=== PATIENT | female | born 1955 | race Native Hawaiian/Other Pacific Islander ===

== ENCOUNTER 2018-09-21 23:31 | Emergency (ER) | payer SELFPAY ==
--- NOTE | 2018-09-22 00:45 | C.PDOC ---
History Of Present Illness 63 year old female with several episodes of nose bleeding since yesterday was concerned checked her blood pressure and saw it was 160 systolic. Denies chest pain, SOB, dizziness, syncope, or abdominal pain. Patient has no Hx of HTN and does not take any medications except multivitamin. Time Seen by Provider: 09/22/18 00:15 Chief Complaint (Nursing): High Blood Pressure History Per: Patient History/Exam Limitations: no limitations Onset/Duration Of Symptoms: Days Current Symptoms Are (Timing): Still Present Quality Of Symptoms: Asymptomatic Recent travel outside of the [place]: No Past Medical History Reviewed: Historical Data, Nursing Documentation, Vital Signs Vital Signs: Last Vital Signs Temp 98.1 F 09/21/18 23:44 Pulse 67 09/22/18 00:13 Resp 16 09/21/18 23:44 BP 158/79 H 09/22/18 00:13 Pulse Ox 100 09/21/18 23:44 - Medical History PMH: Hypercholesterolemia Family History: States: No Known Family Hx - Social History Hx Alcohol Use: No Hx Substance Use: No - Immunization History Hx Influenza Vaccination: No Hx Pneumococcal Vaccination: No Review Of Systems Constitutional: Negative for: Fever, Chills ENT: Positive for: Other (Nose bleeds) Cardiovascular: Negative for: Chest Pain, Palpitations Respiratory: Negative for: Cough, Shortness of Breath Gastrointestinal: Negative for: Nausea, Vomiting, Abdominal Pain Genitourinary: Negative for: Dysuria, Hematuria Musculoskeletal: Negative for: Back Pain Skin: Negative for: Rash Neurological: Negative for: Weakness, Numbness, Dizziness Physical Exam - Physical Exam Appears: Non-toxic, No Acute Distress Skin: Normal Color, Warm Head: Atraumatic, Normacephalic Eye(s): bilateral: Normal Inspection Nose: Normal, Other (No active bleeding) Oral Mucosa: Moist Neck: Normal, Supple Chest: Symmetrical, No Tenderness Cardiovascular: Rhythm Regular Respiratory: Normal Breath Sounds, No Rales, No Rhonchi, No Wheezing Gastrointestinal/Abdominal: Soft, No Tenderness Neurological/Psych: Oriented x3, Normal Speech ED Course And Treatment - Laboratory Results Result Diagrams: 09/22/18 00:45 09/22/18 00:45 ECG: Interpreted By Me, Viewed By Me ECG Rhythm: Sinus Rhythm Interpretation Of ECG: Normal axis, normal interval, no ST elevations, no T wave changes Rate From EC O2 Sat by Pulse Oximetry: 100 (Room air) Pulse Ox Interpretation: Normal - Radiology CXR: Interpreted by Me CXR Interpretation: Yes: No Acute Disease (hypoinflation) Medical Decision Making Medical Decision Making: Plan: * EKG * Blood work * CXR Patient with no complaints throughout ED course. No epistaxis noted. EKG and CXR unremarkable. Labs showed hyperglycemia, patient reports no history of diabetes. 1L NS bolus given with improvement of glucose to 381. No evidence of DKA. On re- eval patient in no distress. Results discussed. Stressed to the patient the importance of following up with her PMD for her elevated blood pressure and glucose. Patient verbalized understanding. BP 145/82 at discharge. Disposition - Disposition Disposition: HOME/ ROUTINE Disposition Time: 02:35 Condition: STABLE Additional Instructions: OKSANA MURILLO, thank you for letting us take care of you today. Your provider was Judith Aj MD and you were treated for TROUBL BREATHING, NOSE BLEED. The emergency medical care you received today was directed at your acute symptoms. If you were prescribed any medication, please fill it and take as directed. It may take several days for your symptoms to resolve. Return to the Emergency Department if your symptoms worsen, do not improve, or if you have any other problems. Please contact your doctor or call one of the physicians/clinics you have been referred to that are listed on the Patient Visit Information form that is included in your discharge packet. Bring any paperwork you were given at discharge with you along with any medications you are taking to your follow up visit. Our treatment cannot replace ongoing medical care by a primary care provider outside of the emergency department. Thank you for allowing the [facility] team to be part of your care today. If you had an X-Ray or CT scan: A Radiologist will review the ED reading if any change in treatment is needed we will contact you. If you had a blood, urine, or wound culture: It will take several days for the results, if any change in treatment is needed we will contact you. If you had an STI test: It will take 48 hours for the results. Please call after 1 week if you have not heard back. Instructions: High Blood Pressure (DC), Hyperglycemia, Adult (DC), Nosebleeds (DC) Forms: e(ye)BRAIN (Indonesian) - Clinical Impression Clinical Impression: High blood pressure, Hyperglycemia, Epistaxis - Scribe Statement The provider has reviewed the documentation as recorded by the Scribe Gian Sandhu All medical record entries made by the Vernellibe were at my direction and personally dictated by me. I have reviewed the chart and agree that the record accurately reflects my personal performance of the history, physical exam, medical decision making, and the department course for this patient. I have also personally directed, reviewed, and agree with the discharge instructions and disposition.
[2018-09-22 00:53] LABS: BASO % 0.7 % (0.0-2.0); EOS # 0.1 K/uL (0.0-0.7); EOS % 2.1 % (0.0-4.0); HEMOGLOBIN 13.2 g/dL (11.0-16.0); LYMPH # 2.4 K/uL (1.0-4.3); LYMPH % 37.9 % (20.0-40.0); MEAN CORPUSCULAR HEMOGLOBIN 30.2 pg (27.0-31.0); MEAN CORPUSCULAR HGB CONC 33.9 g/dL (33.0-37.0); MEAN PLATELET VOLUME 7.5 fL (7.2-11.7); MONO # 0.4 K/uL (0.0-0.8); MONO % 6.9 % (0.0-10.0); NEUT # 3.4 K/uL (1.8-7.0); NEUT % 52.4 % (50.0-75.0); NRBC % 0.1 % (0.0-2.0); RBC 4.38 Mil/uL (3.80-5.20); RED CELL DISTRIBUTION WIDTH 13.1 % (11.5-14.5); WHITE BLOOD COUNT 6.4 K/uL (4.8-10.8)
[2018-09-22 01:02] LABS: PROTHROMBIN TIME 10.5 SECONDS (9.7-12.2)
[2018-09-22 01:23] VITALS: RESP 18
[2018-09-22 01:32] LABS: ALB/GLOB RATIO 1.2 (1.0-2.1); ALBUMIN 4.1 g/dL (3.5-5.0); ALT/SGPT 16 U/L (9-52); AST/SGOT 19 U/L (14-36); BLOOD UREA NITROGEN 24 mg/dL (7-17); CALCIUM 9.8 mg/dl (8.6-10.4); GFR NON-AFRICAN AMERICAN > 60
[2018-09-22] MEDS ORDERED: Sodium Chloride 0.9% 1,000 ML IV ONE (01:35)
[2018-09-22] MEDS ORDERED: Sodium Chloride 0.9% 1,000 ML ONE (01:40)
[2018-09-22 02:42] VITALS: BP 158/90; PULSE 64; TEMP 98.7
[2018-09-22 02:43] VITALS: O2SAT 100
--- NOTE | 2018-09-22 09:13 | RAD ---
Chest x-ray single frontal view HISTORY: Chest pain. COMPARISON: None available. Findings: Mild venous congestion. Enlarged ectatic aorta. Mild cardiomegaly. Biapical pleural thickening with upper lobe granulomatous changes. Mild atelectatic changes at the right lung base. Degenerative changes in the spine and shoulders. Impression: Mild venous congestion. Enlarged ectatic aorta. Mild cardiomegaly. Biapical pleural thickening with upper lobe granulomatous changes. Mild atelectatic changes at the right lung base.
== END 2018-09-22 02:42 | disposition home or self-care (01) ==
LOC: C.ER 23:31
DX: R04.0 Epistaxis (principal); R73.9 Hyperglycemia, unspecified; R03.0 Elevated blood-pressure reading, without diagnosis of hypertension; E78.00 Pure hypercholesterolemia, unspecified
CPT/HCPCS: 71045; 80053; 82948; 84484; 85025; 85610; 85730; 96360; 99285; J7030